=== PATIENT | female | born 1955 | race Caucasian/White ===

== ENCOUNTER → 2019-12-26 15:45 | Outpatient (CLI) | payer OTHER, SELFPAY ==
[2019-12-26 18:11] LABS: Cancer Antigen 125 < 5.5 U/mL (0-35)
== END ==
PROVIDERS: PCP Specialist; Referring Provider Specialist; Visit Provider Specialist
DX: Z80.41 Family history of malignant neoplasm of ovary (principal)
CPT/HCPCS: 36415; 86304